=== PATIENT | female | born 1980 | race American Indian/Alaskan Native ===

== ENCOUNTER 2016-11-02 18:09 | Emergency (ER) | payer SELFPAY ==
[2016-11-02 19:14] LABS: Eosinophils % (Auto) 1.2 % (0.0-4.3); Hematocrit 40.1 % (30.3-42.9); Hemoglobin 13.3 gm/dl (10.1-14.3); Mean Corpuscular HGB Conc 33 % (30-34); Mean Corpuscular Hemoglobin 33 pg (28-32); Mean Corpuscular Volume 99 fl (79-97); Platelet Count 199 K/mm3 (140-440); Red Blood Count 4.06 M/mm3 (3.65-5.03); Red Cell Distribution Width 13.6 % (13.2-15.2); White Blood Count 7.4 K/mm3 (4.5-11.0)
[2016-11-02 19:34] LABS: Anion Gap 16 mmol/L; BUN/Creatinine Ratio 8.57; Blood Urea Nitrogen 6 mg/dL (7-17); Calcium 9.5 mg/dL (8.4-10.2); Carbon Dioxide 28 mmol/L (22-30); Glucose 94 mg/dL (65-100); Potassium 3.6 mmol/L (3.6-5.0); Sodium 142 mmol/L (137-145)
[2016-11-02] MEDS ORDERED: NACL 0.9% 1000 ML 2,000 ML IV ONE (20:26)
--- NOTE | 2016-11-02 20:26 | Emergency Department Report ---
ED N/V/D HPI - General Chief complaint: Nausea/Vomiting/Diarrhea Stated complaint: N/V/D Time Seen by Provider: 11/02/16 22:22 Source: patient Mode of arrival: Ambulatory Limitations: No Limitations - History of Present Illness Initial comments: Patient here reports that she's been having nausea vomiting and diarrhea for 9 days. She says that she is nauseous all the time. She says she's having 3 loose stools today and vomiting 2 times a day. Denies any abdominal or back pain. MD complaint: nausea, vomiting, diarrhea, abdominal pain Onset/Timin -: days(s) Description of Vomiting: food contents Description of Diarrhea: water Associated Abdominal Pain: Yes Location: periumbillcal Radiation: none Severity: severe Pain Scale: 8 Quality: cramping Consistency: intermittent Improves with: none Worsens with: none Context: other (unknown) Associated Symptoms: nausea/vomiting. denies: myalgias, chest pain, cough, diaphoresis, fever/chills, headaches, loss of appetite, malaise, rash, dysuria, shortness of breath, syncope, weakness - Related Data Home Medications Medication Instructions Recorded Confirmed Last Taken Ondansetron [Zofran TAB] 4 mg PO Q8HR PRN 11/02/16 11/02/16 10/25/16 Previous Rx's Medication Instructions Recorded Last Taken Type Promethazine [Phenergan TAB] 1 tab PO Q6H PRN #21 tablet 11/03/16 Unknown Rx traMADol [Ultram] 50 mg PO Q6HR PRN #15 tablet 11/03/16 Unknown Rx Allergies Allergy/AdvReac Type Severity Reaction Status Date / Time Penicillins Allergy Swelling Verified 11/03/16 00:10 ED Review of Systems ROS: Stated complaint: N/V/D Other details as noted in HPI Comment: All other systems reviewed and negative Constitutional: denies: chills, fever Respiratory: no symptoms reported Cardiovascular: denies: chest pain, palpitations, edema, syncope Gastrointestinal: abdominal pain, nausea, vomiting, diarrhea. denies: hematemesis, melena, hematochezia Genitourinary: denies: urgency, dysuria, frequency, hematuria, discharge, abnormal menses, dyspareunia Skin: denies: rash Neurological: denies: headache, weakness, numbness, paresthesias, confusion, abnormal gait, vertigo ED Past Medical Hx - Past Medical History Previous Medical History?: Yes Additional medical history: Nausea - Surgical History Past Surgical History?: Yes Additional Surgical History: D&C - Family History Family history: hypertension - Social History Smoking Status: Current Every Day Smoker Substance Use Type: Alcohol, Prescribed - Medications Home Medications: Home Medications Medication Instructions Recorded Confirmed Last Taken Type Ondansetron [Zofran TAB] 4 mg PO Q8HR PRN 11/02/16 11/02/16 10/25/16 History Promethazine [Phenergan TAB] 1 tab PO Q6H PRN #21 tablet 11/03/16 Unknown Rx traMADol [Ultram] 50 mg PO Q6HR PRN #15 tablet 11/03/16 Unknown Rx ED Physical Exam - General Limitations: No Limitations General appearance: alert, in no apparent distress - Head Head exam: Present: atraumatic, normocephalic, normal inspection - Eye Eye exam: Present: normal appearance, PERRL, EOMI. Absent: scleral icterus, conjunctival injection, periorbital swelling, periorbital tenderness Pupils: Present: normal accommodation - ENT ENT exam: Present: normal exam, normal orophraynx - Neck Neck exam: Present: normal inspection, full ROM. Absent: tenderness, meningismus, lymphadenopathy - Respiratory Respiratory exam: Present: normal lung sounds bilaterally. Absent: respiratory distress, chest wall tenderness - Cardiovascular Cardiovascular Exam: Present: regular rate, normal rhythm, normal heart sounds - GI/Abdominal GI/Abdominal exam: Present: soft, tenderness (periumbilical area), normal bowel sounds. Absent: distended, guarding, rebound, rigid, organomegaly, mass, hernia - Extremities Exam Extremities exam: Present: normal inspection, full ROM, normal capillary refill. Absent: tenderness, pedal edema, joint swelling, calf tenderness - Back Exam Back exam: Present: normal inspection, full ROM. Absent: tenderness, CVA tenderness (R), CVA tenderness (L), muscle spasm, paraspinal tenderness, vertebral tenderness, rash noted - Neurological Exam Neurological exam: Present: alert, oriented X3, normal gait, reflexes normal. Absent: motor sensory deficit - Psychiatric Psychiatric exam: Present: normal affect, normal mood - Skin Skin exam: Present: warm, dry, intact, normal color. Absent: rash ED Course Vital Signs 11/02/16 11/02/16 18:39 19:39 Temperature 98.5 F Pulse Rate 87 Respiratory 20 18 Rate Blood Pressure 121/81 O2 Sat by Pulse 100 Oximetry Vital Signs 11/02/16 11/02/16 11/03/16 18:39 19:39 01:50 Temperature 98.5 F Pulse Rate 87 70 Respiratory 20 18 18 Rate Blood Pressure 121/81 Blood Pressure 95/67 [Left] O2 Sat by Pulse 100 98 Oximetry Patient will blood pressure 95/67 she says it's normal for her. - Reevaluation(s) Reevaluation #1: 11/03/16 01:03 Patient is stable. She is awake and CT scan results of abdomen. Her exam remained unchanged. She received 2 L of IV fluid in emergency room, Zofran 4 mg IV. Reevaluation #2: 11/03/16 01:43 Patient is stable. Abdominal assessment remained unchanged. CT scan findings discussed with patient. ED Medical Decision Making - Lab Data Result diagrams: 11/02/16 19:05 11/02/16 19:05 Lab Results 11/02/16 11/02/16 11/02/16 Range/Units 18:43 19:05 19:05 WBC 7.4 (4.5-11.0) K/mm3 RBC 4.06 (3.65-5.03) M/mm3 Hgb 13.3 (10.1-14.3) gm/dl Hct 40.1 (30.3-42.9) % MCV 99 H (79-97) fl MCH 33 H (28-32) pg MCHC 33 (30-34) % RDW 13.6 (13.2-15.2) % Plt Count 199 (140-440) K/mm3 Lymph % (Auto) 36.9 H (13.4-35.0) % [place] % (Auto) 11.7 H (0.0-7.3) % Eos % (Auto) 1.2 (0.0-4.3) % Baso % (Auto) 1.0 (0.0-1.8) % Lymph # 2.7 (1.2-5.4) K/mm3 [place] # 0.9 H (0.0-0.8) K/mm3 Eos # 0.1 (0.0-0.4) K/mm3 Baso # 0.1 (0.0-0.1) K/mm3 Seg Neutrophils % 49.2 (40.0-70.0) % Seg Neutrophils # 3.6 (1.8-7.7) K/mm3 Sodium 142 (137-145) mmol/L Potassium 3.6 (3.6-5.0) mmol/L Chloride 102.0 (98-107) mmol/L Carbon Dioxide 28 (22-30) mmol/L Anion Gap 16 mmol/L BUN 6 L (7-17) mg/dL Creatinine 0.7 (0.7-1.2) mg/dL Estimated GFR > 60 ml/min BUN/Creatinine Ratio 8.57 % Glucose 94 (65-100) mg/dL POC Glucose 107 H (70-105) Calcium 9.5 (8.4-10.2) mg/dL Urine Color (Yellow) Urine Turbidity (Clear) Urine pH (5.0-7.0) Ur Specific [place] (1.003-1.030) Urine Protein (Negative) mg/dL Urine Glucose (UA) (Negative) mg/dL Urine Ketones (Negative) mg/dL Urine Blood (Negative) Urine Nitrite (Negative) Urine Bilirubin (Negative) Urine Urobilinogen (<2.0) mg/dL Ur Leukocyte Esterase (Negative) Urine WBC (Auto) (0.0-6.0) /HPF Urine RBC (Auto) (0.0-6.0) /HPF U Epithel Cells (Auto) (0-13.0) /HPF Urine Mucus /HPF Urine HCG, Qual (Negative) 11/02/16 Range/Units 20:18 WBC (4.5-11.0) K/mm3 RBC (3.65-5.03) M/mm3 Hgb (10.1-14.3) gm/dl Hct (30.3-42.9) % MCV (79-97) fl MCH (28-32) pg MCHC (30-34) % RDW (13.2-15.2) % Plt Count (140-440) K/mm3 Lymph % (Auto) (13.4-35.0) % [place] % (Auto) (0.0-7.3) % Eos % (Auto) (0.0-4.3) % Baso % (Auto) (0.0-1.8) % Lymph # (1.2-5.4) K/mm3 [place] # (0.0-0.8) K/mm3 Eos # (0.0-0.4) K/mm3 Baso # (0.0-0.1) K/mm3 Seg Neutrophils % (40.0-70.0) % Seg Neutrophils # (1.8-7.7) K/mm3 Sodium (137-145) mmol/L Potassium (3.6-5.0) mmol/L Chloride (98-107) mmol/L Carbon Dioxide (22-30) mmol/L Anion Gap mmol/L BUN (7-17) mg/dL Creatinine (0.7-1.2) mg/dL Estimated GFR ml/min BUN/Creatinine Ratio % Glucose (65-100) mg/dL POC Glucose (70-105) Calcium (8.4-10.2) mg/dL Urine Color [place] (Yellow) Urine Turbidity Clear (Clear) Urine pH 6.0 (5.0-7.0) Ur Specific [place] 1.028 (1.003-1.030) Urine Protein 100 mg/dl (Negative) mg/dL Urine Glucose (UA) Neg (Negative) mg/dL Urine Ketones Tr (Negative) mg/dL Urine Blood Neg (Negative) Urine Nitrite Neg (Negative) Urine Bilirubin Neg (Negative) Urine Urobilinogen 4.0 (<2.0) mg/dL Ur Leukocyte Esterase Tr (Negative) Urine WBC (Auto) 1.0 (0.0-6.0) /HPF Urine RBC (Auto) 17.0 (0.0-6.0) /HPF U Epithel Cells (Auto) 17.0 H (0-13.0) /HPF Urine Mucus 3+ /HPF Urine HCG, Qual Negative (Negative) Urine culture pending - Radiology Data Radiology results: report reviewed CT of abdomen and pelvis with IV contrast reveals third dominance is identified on both ovaries the largest on the right ovary was 2 cm. He has moderate fluid in the lower pelvis. Hemorrhagic cyst is suspected. No evidence of intestinal or urinary tract obstruction. No ileus or enteritis. Appendix appears normal. Gallbladder liver and pancreas are normal. - Medical Decision Making ED course: Patient with nausea vomiting and diarrhea, abdominal pain, bilateral ovarian cysts suspicious for hemorrhagic cyst. CBC and chemistry stable. Urinalysis stable she had trace ketone and trace leukocyte Estrace urine culture sent. Regnancy test is negative. CT scan done and revealed the patient has bilateral ovarian cyst suspicious for hemorrhagic cyst otherwise normal. I discussed this with patient in detail regarding her lab results and her CT scan and she voiced understanding. Discussed with patient that she will need to follow-up with her [facility] doctor for further evaluation and treatment of ovarian cysts. Patient will be given a CD of her CT scan. Patient given IV fluids 2 L along with Zofran 4 mg IV and says she felt better. Patient discharged home in stable condition with prescription for Phenergan and Ultram. Patient has her own [facility] so she will be following up with her [facility]. Critical care attestation.: If time is entered above; I have spent that time in minutes in the direct care of this critically ill patient, excluding procedure time. ED Disposition Clinical Impression: Bilateral ovarian cysts, Nausea vomiting and diarrhea Abdominal pain Qualifiers: Abdominal location: periumbilical Qualified Code(s): R10.33 - Periumbilical pain Disposition: DISCHARGED TO HOME OR SELFCARE Is pt being admited?: No Does the pt Need Aspirin: No Condition: Stable Instructions: Abdominal Pain (ED), Acute Nausea and Vomiting (ED), Acute Diarrhea (ED), Nutrition Tips for Relief of Diarrhea (ED), Ovarian Cyst (ED) Additional Instructions: Please follow-up. [facility] in 2-3 days and take ED as CT scan will see. He can take Ultram for pain and Phenergan for nausea. increase her fluid intake. Phenergan can cause drowsiness so please do not drive or operate heavy machinery while on this medication Prescriptions: Promethazine [Phenergan TAB] 1 tab PO Q6H PRN #21 tablet PRN Reason: Nausea traMADol [Ultram] 50 mg PO Q6HR PRN #15 tablet PRN Reason: Pain Referrals: HOME MAHAJAN MD [Primary Care Provider] - 2-3 Days Your, OBGYN [Other] - 2-3 Days Forms: Accompanied Note, Work/School Release Form(ED)
[2016-11-02] MEDS ORDERED: ZOFRAN IV ONE (20:27)
[2016-11-02 20:59] LABS: Bilirubin,Urine NEG (Negative); Blood,Urine NEG (Negative); Ketones,Urine TR mg/dL (Negative); Leukocyte Esterase,Urine TR (Negative); Mucus,Urine 3+ /HPF; Nitrite,Urine NEG (Negative)
[2016-11-03] MEDS ORDERED: NACL ONE (00:02)
--- NOTE | 2016-11-03 01:25 | Cat Scan Report ---
FINAL REPORT PROCEDURE: CT ABDOMEN PELVIS W CON TECHNIQUE: Computerized axial tomography of the abdomen and pelvis was performed after the IV injection of iodinated nonionic contrast. HISTORY: pain in abdomen with nausea/v/d upper mid abd pain COMPARISON: No prior studies are available for comparison. FINDINGS: Visualized lower thorax: No significant abnormality. Liver: Normal size and attenuation. Spleen: Normal size and attenuation. Gallbladder and biliary system: Normal. Pancreas: Normal. Adrenals: Normal. Kidneys: The kidneys have a normal size. No hydronephrosis. No renal stones or masses.. GI tract: The stomach is normal. The small bowel has a normal caliber without obstruction. No ileus or enteritis. The cecum is normal. The appendix region is normal. The colon has a normal appearance.. Lymph nodes and mesentery: Normal. Vasculature: Normal. Bladder: Normal. Reproductive organs: The uterus is normal. There are dominant cysts identified in both ovaries. The largest on the right ovary measures 2 centimeters. Moderate fluid in the lower pelvis is noted.. Peritoneum: Moderate fluid lower pelvis.. Musculoskeletal structures: No significant abnormality. Other: None. IMPRESSION: There are dominant cysts identified on both ovaries the largest on the right ovary measures 2 centimeters. There is moderate fluid in the lower pelvis. Hemorrhagic cyst is suspected. No evidence of intestinal or urinary tract obstruction. No ileus or enteritis.
[2016-11-03 01:51] VITALS: BP 95/67
== END 2016-11-03 02:00 | disposition home or self-care (01) ==
LOC: ED 18:09
DX: N83.202 Unspecified ovarian cyst, left side (principal); N83.201 Unspecified ovarian cyst, right side; R11.2 Nausea with vomiting, unspecified; R19.7 Diarrhea, unspecified; F17.200 Nicotine dependence, unspecified, uncomplicated; Z88.0 Allergy status to penicillin
CPT/HCPCS: 36415; 74177; 80048; 81001; 81025; 82962; 85025; 87086; 96361; 96374; 99284; J2405; J7030; Q9967